=== PATIENT | female | born 1970 | race Hispanic/Latino ===

== ENCOUNTER → 2025-02-17 11:39 | Outpatient (CLI) | payer OTHER, SELFPAY ==
--- NOTE | 2025-02-17 11:41 | DI.CT.S_ITS ---
PROCEDURE: CT CHEST HIGH RESOLUTION INDICATIONS: rule out ILD TECHNIQUE: Noncontrast 1.0 and 5.0 mm thick contiguous axial sections from the pulmonary apex to the posterior costophrenic angles, with 7 mm thick coronal and sagittal MIP reformats. 1 mm thick dynamic expiratory images acquired through the upper, mid, and lower lungs. 1.0 mm thick axial sections acquired from the hilario to the posterior costophrenic angles in the prone end-inspiration position. For radiation dose reduction, the following was used: automated exposure control, adjustment of mA and/or kV according to patient size. COMPARISON: None. FINDINGS: Image quality: Diagnostic. Lower Neck: No enlarged lymph nodes. Thyroid: No thyroid nodules which require sonographic follow up, per consensus guidelines. Axillae: No enlarged lymph nodes. Chest Wall: Unremarkable. Bones: Unremarkable. Lungs and Pleura: No pneumothorax or pleural effusions. No consolidation. Tree-in-bud nodularity within the right middle lobe. No reticular thickening. No mosaic attenuation or air trapping. No dynamic airway collapse. No honeycombing. No traction bronchiectasis. Heart: Heart size is normal. No pericardial effusion. Thoracic Vessels: The aorta and pulmonary arteries demonstrate normal size. Mediastinum and [place]: No enlarged lymph nodes. Esophagus: No wall thickening. Patulous esophagus containing air-fluid levels. hiatal hernia. Upper Abdomen: Visualized upper abdomen solid organs and bowel loops appear normal. IMPRESSION: No image findings to correlate with interstitial lung disease. Right middle lobe tree-in-bud nodularity concerning for infection. Patulous fluid-filled esophagus increases risk for aspiration. Dictated by: Swapnil Williamson M.D. on 02/17/2025 at 11:59 Approved by: Swapnil Williamson M.D. on 02/17/2025 at 12:05
== END ==
LOC: CT 11:40
PROVIDERS: PCP Physician Assistant; Referring Provider Physician Assistant; Visit Provider Internal Medicine
DX: R06.02 Shortness of breath (principal); R91.8 Other nonspecific abnormal finding of lung field; K44.9 Diaphragmatic hernia without obstruction or gangrene
CPT/HCPCS: 71250